=== PATIENT | male | born 1945 | race Caucasian/White ===

== ENCOUNTER 2017-03-09 09:05 | Inpatient (IN) | payer OTHER ==
--- NOTE | 2017-02-12 14:21 | PAT Medication Instructions ---
Service Date Feb 12, 2017. Current Home Medication List Metoprolol Tartrate (Lopressor) (Lopressor), 25 MG PO QAM Multivitamin (Multivitamin), 1 TAB PO QAM Rivaroxaban (Xarelto), 20 MG PO QAM Solifenacin (Vesicare), 10 MG PO QAM Tamsulosin HCl (Tamsulosin HCl), 1 CAP PO QPM Telmisartan (Telmisartan), 1 TAB PO QAM Medication Instructions For Your Scheduled Surgery - Check with surgeon/legal nurse consultant for instructions: Rivaroxaban (Xarelto), 20 MG PO QAM - Hold the following medications the morning of surgery: Telmisartan (Telmisartan), 1 TAB PO QAM Solifenacin (Vesicare), 10 MG PO QAM Multivitamin (Multivitamin), 1 TAB PO QAM - Take the following medications the morning of surgery with a sip of water: Metoprolol Tartrate (Lopressor) (Lopressor), 25 MG PO QAM - Take the following medications as scheduled the night before surgery: Tamsulosin HCl (Tamsulosin HCl), 1 CAP PO QPM If you have any questions please call us at [phone] (Fannie Villalpando PA-C) or [phone] or [phone]
[2017-02-12 15:07] VITALS: BMI 44.0
--- NOTE | 2017-02-12 15:11 | DIAGNOSTIC IMAGING REPORT ---
CHEST PREADMISSION(PA/LAT) CLINICAL HISTORY: Preoperative evaluation. COMPARISON STUDY: No previous studies for comparison. FINDINGS: Lung volumes are normal. There is no pneumothorax or pleural effusion. There is borderline cardiomegaly without evidence of pulmonary edema. Linear left basilar opacity is suggestive of atelectasis or scarring. There is no consolidation. A dual lead left subclavian pacemaker is in place. IMPRESSION: 1. No acute findings. 2. Borderline cardiomegaly. Electronically signed by: Jones Sharma M.D. 02/12/2017 3:10 PM Dictated Date/Time: 02/12/2017 3:08 PM
[2017-02-12 15:16] LABS: BASO % 0.3 %; BASO ABS # 0.02 K/uL (0-0.2); COMPLETE YES; EOS % 2.4 %; HEMATOCRIT 42.1 % (42-52); LYMPH % 18.3 %; MEAN CELL VOLUME 91.1 fL (80-100); MEAN CORPUSCULAR HGB CONC 35.2 g/dl (32-36); MEAN PLATELET VOLUME 11.3 fL (7.4-10.4); MONO % 9.4 %; NEUT % 69.6 %; PLATELET COUNT 112 K/uL (130-400); RED BLOOD COUNT 4.62 M/uL (4.7-6.1); URINE APPEARANCE CLEAR (CLEAR); URINE BILIRUBIN NEG (NEG); URINE COLOR DK YELLOW; URINE NITRITE NEG (NEG); URINE PH 6.5 (4.5-7.5); URINE SPECIFIC GRAVITY 1.019 (1.000-1.030); UROBILINOGEN NEG (NEG); WHITE BLOOD COUNT 6.57 K/uL (4.8-10.8); ZZUR CULT IF INDIC CLEAN CATCH NO
[2017-02-12 15:23] LABS: MANUAL MICROSCOPIC REQUIRED? NO; REVIEW REQ? NO
[2017-02-12 15:28] LABS: INR 1.3 (0.9-1.1); PARTIAL THROMBOPLASTIN RATIO 1.4; PROTHROMBIN TIME (PATIENT) 14.2 SECONDS (9.0-12.0)
[2017-02-12 15:37] LABS: BUN/CREATININE RATIO 13.2 (10-20); CALCIUM 8.7 mg/dl (8.5-10.1); CREATININE 0.88 mg/dl (0.60-1.40); POTASSIUM 4.2 mmol/L (3.5-5.1)
--- NOTE | 2017-03-06 08:49 | HISTORY & PHYSICAL EXAMINATION ---
DATE OF ADMISSION: 03/09/2017 CHIEF COMPLAINT: Bilateral knee pain, left greater than right. HISTORY OF PRESENT ILLNESS: Mr. Canales is a 71-year-old male with a 10-year history of pain in his knees. He rates his pain a 12/10. He states the left is worse than the right. He has been ambulating with a cane. The patient has had injections, bracing, and physical therapy without relief. He has failed conservative treatment and is scheduled for staged total knee replacement. PAST MEDICAL HISTORY: History of PE in 1997, sleep apnea, hypertension, bladder cancer. He denies heart disease or diabetes. PAST SURGICAL HISTORY: Left knee arthroscopy, hernia repair, cholecystectomy, and pacemaker. SOCIAL HISTORY: The patient denies alcohol or tobacco use. He lives in a single-story home. He is and retired. FAMILY HISTORY: Negative for DVT. MEDICATIONS: Metoprolol 25 mg daily, multivitamin, Xarelto 20 mg daily, tamsulosin 0.4 mg daily, Micardis 20 mg daily, VESIcare 10 mg daily, isosorbide 30 mg. ALLERGIES: MORPHINE AND ADHESIVE. REVIEW OF SYSTEMS: See HPI. Ten other systems reviewed, all negative. PHYSICAL EXAMINATION: VITAL SIGNS: Height 5 feet 8, weight 286 pounds. BMI is 44. GENERAL: This is a well-developed, well-nourished male who is alert and oriented x3. Mood and affect are appropriate. HEENT: Normocephalic, atraumatic. Mucous membranes are moist and intact. NECK: Supple without lymphadenopathy. HEART: Regular rate and rhythm without murmurs, rubs or gallops. LUNGS: Clear to auscultation without wheezes or rhonchi. ABDOMEN: Soft and nontender. Bowel sounds are equal and active. EXTREMITIES: No ecchymosis, redness or warmth. He is wearing MAFO brace on his right lower extremity. He has moderate venous stasis disease with pitting edema. He has a varus deformity. Range of motion is from 0-110 degrees with +1 laxity. He is neurovascularly intact with +5/5 strength. X-RAY EXAMINATION: AP and lateral views show joint space narrowing and osteophyte formation. IMPRESSION: Degenerative joint disease, left knee. PLAN: The patient will be admitted for a left total knee arthroplasty. We will plan on resuming Xarelto for DVT prophylaxis since he has a history of DVT. PCP is Dr. Laura. DEVI
[~2017-03-09] VITALS: Ht 172.7 cm; Wt 130.6 kg
[2017-03-09] VITALS (7 sets, daily range): BP systolic 124–189; BP diastolic 69–102; PULSE 59–65; TEMP 36.6–37.1; O2SAT 95–98; Ht 172.7 cm; Wt 130.6 kg
[2017-03-09] MEDS: TRANEXAMIC ACID INJ 1,000 MG in SODIUM CHLORIDE 0.9% 100ML 100 ML IV SCH ×2 (06:30→11:59)
[~2017-03-09 09:05] MED LIST: ACETAMINOPHEN 500 MG TAB PO SCH; BUPIVACAINE 0.5 % 5 MG/1 ML PF 10ML VIAL ONE; CEFAZOLIN 3000 MG/65 ML D5W 65 ML IV SCH; CeleBREX 200 MG CAP PO SCH; DEXAMETHASONE 4 MG TAB PO SCH; FAMOTIDINE 20 MG TAB PO SCH; FLM4 PO; GABAPENTIN 300 MG CAP PO SCH; LACTATED RINGER'S 1000ML 1,000 ML IV SCH; LACTATED RINGER'S 1000ML 500 ML IV ONE; LACTATED RINGER'S 1000ML IV SCH; METO25TA56 PO; METOCLOPRAMIDE HCL 10 MG TAB PO SCH; MULT-506 PO; OXYCODONE HCL 10 MG TABCR (OXYCONTIN) PO SCH; POLYMYXIN B SULFATE 100,000 UNITS in NSS 100ML IR SCH; RIVA1TAB4 PO; ROPIVACAINE 5MG/ML 30 ML 150 MG, BUPIVACAINE/EPINEPHR 0.5% MPF 30 ML, KETOROLAC TROMETH... INFIL SCH; SOLI10TA2 PO; VANCOMYCIN INJ 400 MG in NSS 100ML IR SCH; [UNRECOGNIZED DRUG - CODE] PO
[2017-03-09 10:43] LABS: HEMATOCRIT 39.8 % (42-52); MEAN CELL VOLUME 89.4 fL (80-100); MEAN CORPUSCULAR HEMOGLOBIN 32.1 pg (25-34); RED BLOOD COUNT 4.45 M/uL (4.7-6.1); WHITE BLOOD COUNT 5.05 K/uL (4.8-10.8)
[2017-03-09] MEDS ORDERED: MIDAZOLAM HCL 1 MG/ML 2ML VIAL ONE ×2 (10:47)
[2017-03-09] MEDS ORDERED: FENTANYL CITRATE INJ 50 MCG/1 ML 2 ML VIAL ONE ×3 (10:47→14:00)
[2017-03-09] MEDS ORDERED: PROPOFOL IV EMULSION 10 MG/ML 20 ML VIAL IV ONE (10:47)
--- NOTE | 2017-03-09 10:53 | History & Physical Bridge Note ---
H&P Re-Evaluation Bridge Note: I have examined the patient, reviewed the History & Physical and in the interval since the performance of the History & Physical I have noted the following changes of clinical significance: No changes noted
[2017-03-09 11:21] LABS: MEAN CORPUSCULAR HGB CONC 35.9 g/dl (32-36); MEAN PLATELET VOLUME 10.1 fL (7.4-10.4); PLATELET COUNT 87 K/uL (130-400)
[2017-03-09] MEDS ORDERED: POVIDONE-IODINE OP SOLN 30 ML BTL ONE (11:45)
[2017-03-09] MEDS ORDERED: ORTHO JOINT ANESTHETIC ONE (11:45)
[2017-03-09] MEDS ORDERED: BUPIVACAINE/EPINEPHRINE 0.25% 1:200,000 30 ML VIAL ONE (11:45)
[2017-03-09] MEDS ORDERED: LIDOCAINE HCL 2% 2 ML VIAL (20MG/ML) ONE (12:36)
[2017-03-09] MEDS ORDERED: DEXAMETHASONE SOD INJ 4 MG/ML VIAL ONE (12:36)
[2017-03-09] MEDS ORDERED: ONDANSETRON INJ 2 MG/ML 2 ML VIAL ONE (12:36)
[2017-03-09] MEDS ORDERED: ROCURONIUM BROMIDE 10 MG/ML 5 ML VIAL ONE ×2 (12:36→13:11)
[2017-03-09] MEDS: BACITRACIN 50000 UNIT VIAL ONE (12:55)
--- NOTE | 2017-03-09 13:22 | [facility] Post Operative Brief Note ---
Immediate Operative Summary Operative Date Mar 09, 2017. Pre-Operative Diagnosis Left Knee Degenerative Joint Disease Post-Operative Diagnosis Left Knee Degenerative Joint Disease MORBID OBESITY BMI 44 Procedure(s) Performed Left Total Knee Arthroplasty, Cemented Surgeon Dr. Elijah Tapia Salt Maker Surgeon(s) Emerson Kruger PA-C Estimated Blood Loss 5ml Findings DJD Specimens A: Left Knee Bone and Tissue Complication(s) None Disposition Recovery Room / PACU
[2017-03-09] MEDS ORDERED: ALUMINUM/MAGNESIUM/SIMETH (MAALOX MAX) 30 ML UDC PO PRN (13:30)
[2017-03-09] MEDS ORDERED: ONDANSETRON INJ 2 MG/ML 2 ML VIAL IV PRN ×2 (13:30)
[2017-03-09] MEDS ORDERED: OXYCODONE HCL IR 5 MG TAB (IMMEDIATE RELEASE) PO PRN (13:30)
[2017-03-09] MEDS ORDERED: BISACODYL 10 MG SUPP PR PRN (13:30)
[2017-03-09] MEDS ORDERED: ATROPINE SULFATE 0.1 MG/ML 5ML SYR IV PRN (13:30)
[2017-03-09] MEDS ORDERED: HYDROmorphone INJ 1 MG/ML SYR IV PRN (13:30)
[2017-03-09] MEDS ORDERED: MAGNESIUM HYDROXIDE SUSP 30 ML UDC PO PRN (13:30)
[2017-03-09] MEDS ORDERED: METOCLOPRAMIDE HCL INJ 5 MG/ML 2 ML VIAL IV PRN (13:30)
[2017-03-09] MEDS ORDERED: DiphenhydrAMINE HCL 50 MG/ML VIAL IV PRN (13:30)
[2017-03-09] MEDS ORDERED: EpHEDrine SULFATE INJ 50 MG/ML AMP IV PRN (13:30)
[2017-03-09] MEDS ORDERED: ZOLPIDEM TARTRATE 5 MG TAB PO PRN (13:30)
[2017-03-09] MEDS ORDERED: SOD PHOSPHATE/SOD BIPHOSPHATE ENEMA 132 ML BTL PR PRN (13:30)
[2017-03-09] MEDS ORDERED: NEOSTIGMINE METHYLSULFATE 5 MG/5 ML SYR ONE (13:41)
[2017-03-09] MEDS ORDERED: GLYCOPYRROLATE INJ 0.2 MG/ML VIAL ONE (13:41)
--- NOTE | 2017-03-09 14:41 | DIAGNOSTIC IMAGING REPORT ---
LEFT KNEE 1 OR 2 VIEWS ROUTINE CLINICAL HISTORY: Left knee degenerative arthritis. Arthroplasty. COMPARISON: None FINDINGS: Alignment of the total left knee arthroplasty is anatomic. There is no fracture or unexpected radiopaque foreign body. Drains are in place. IMPRESSION: Expected findings following total left knee arthroplasty. Electronically signed by: Jones Sharma M.D. 03/09/2017 2:39 PM Dictated Date/Time: 03/09/2017 2:39 PM
[2017-03-09] MEDS: FENTANYL CITRATE INJ 50 MCG/1 ML 2 ML VIAL IV PRN ×2 (14:57→15:02)
[2017-03-09] MEDS: KETOROLAC TROMETHAMINE 15 MG/ML VIAL IV. SCH ×2 (16:50→22:16)
[2017-03-09] MEDS: TRAMADOL HCL 50 MG TAB PO PRN ×2 (17:44→23:54)
--- NOTE | 2017-03-09 19:22 | OPERATIVE REPORT ---
DATE OF OPERATION: 03/09/2017 PREOPERATIVE DIAGNOSES: 1. Degenerative arthritis left knee. 2. Morbid obesity, body mass index 44. POSTOPERATIVE DIAGNOSES: Same. PROCEDURE: Left total knee replacement. SURGEON: Dr. Tapia. ETL ANALYST: EDIE Cooper. ANESTHESIA: General. TOURNIQUET TIME: 75 minutes at 350 mmHg. DRAINS: Hemovac x2. CULTURES: None. COMPLICATIONS: None. COMPONENTS USED: [employer] Knee System: Femur size 6, tibia size 6 x 10, patella size 38. NOTE: EDIE Cooper was present and assisted throughout due to the complicated nature of this case. He helped with preparation and set up, he first assisted throughout and personally closed the capsule, subcutaneous and skin layers and applied the postoperative dressing. DESCRIPTION OF PROCEDURE: Following satisfactory general, the patient was supine. General was required because of a low platelet count. A tourniquet was placed. The lower extremity was prepared with ChloraPrep and draped sterilely. Following a surgical time-out, the tourniquet was inflated because of the patient's obese body habitus and the use general and the history of low platelets. A midline incision was made with a trivector approach. The knee showed severe grade 4 changes throughout. The cruciate ligaments were excised. Using the IM alignment system with a 5 degree cut, the distal femur was sized and shaped for a size 6 posterior stabilized component. Attention was turned to the tibia. The tibia was resected with the extramedullary alignment guide. Soft tissue balancing was completed. The patella was freehand cut and a trial reduction showed good tensioning stability on the collateral ligaments, stable range of motion, and the patella tracked well. The trial components were removed. The capsule was prepared with the orthopedic cocktail and after irrigation, the components were cemented with Simplex G cement. A Betadine soak was performed. When the cement had hardened, the Betadine was irrigated. Two drains were placed. The arthrotomy was closed with 0 V-Loc and #1 Vicryl. The subcutaneous tissues with #1 Vicryl and 2-0 Vicryl and the skin with a running subcuticular stitch of 3-0 V-Loc. Dermabond and a dry dressing were applied. The tourniquet was deflated. The patient was returned to his bed in stable condition. I attest to the content of the Intraoperative Record and any orders documented therein. Any exceptio ns are noted below.
[2017-03-09] MEDS: D5W AND 1/2NSS + 20MEQ KCL 1,000 ML IV SCH (19:41)
--- NOTE | 2017-03-09 19:59 | Anesthesiology Progress Note ---
Anesthesia Post Op Note Date & Time Mar 09, 2017 at 19:57 Vital Signs Pain Intensity: 7.0 Vital Signs Past 12 Hours Date Time Temp Pulse Resp B/P Pulse Ox O2 Delivery O2 Flow Rate FiO2 03/09/17 18:32 36.7 64 18 137/77 96 Nasal Cannula 3.0 03/09/17 17:46 37.1 59 18 143/77 98 Nasal Cannula 3.0 03/09/17 16:47 36.7 60 18 155/102 96 Nasal Cannula 3.0 03/09/17 16:05 36.6 60 18 135/75 98 Nasal Cannula 3.0 03/09/17 15:35 95 Nasal Cannula 3.0 03/09/17 15:35 36.6 65 18 124/69 95 Nasal Cannula 3.0 03/09/17 15:30 64 18 128/65 98 Nasal Cannula 3 03/09/17 15:15 62 18 162/73 97 Nasal Cannula 3 03/09/17 15:00 60 16 147/90 97 Nasal Cannula 3 03/09/17 14:45 36.2 63 18 147/76 97 Nasal Cannula 3 03/09/17 14:35 61 18 136/72 97 Nasal Cannula 3 03/09/17 14:25 65 18 146/71 98 Mask 5 03/09/17 14:15 70 15 155/73 98 Mask 5 03/09/17 14:09 36.2 84 12 143/76 98 Mask 10 03/09/17 10:30 36.8 62 20 189/92 96 Room Air Notes Mental Status: alert / awake / arousable, participated in evaluation Pt Amnestic to Procedure: Yes Nausea / Vomiting: adequately controlled Pain: adequately controlled Airway Patency, RR, SpO2: stable & adequate BP & HR: stable & adequate Hydration State: stable & adequate Anesthetic Complications: no major complications apparent
[2017-03-09] MEDS: OXYCODONE HCL 10 MG TABCR (OXYCONTIN) PO SCH (20:31)
[2017-03-09] MEDS: CEFAZOLIN IV 2,000 MG in DEXTROSE 5% 50ML 50 ML IV SCH (20:33)
[2017-03-09] MEDS: ACETAMINOPHEN 500 MG TAB PO SCH (20:33)
[2017-03-09] MEDS: SENNA 8.6 MG TAB PO SCH (20:33)
[2017-03-09] MEDS: ASPIRIN 81 MG ECTAB PO SCH (20:33)
[2017-03-09] MEDS: TAMSULOSIN HCL 0.4 MG CAP PO SCH (20:34)
[2017-03-10] VITALS (7 sets, daily range): BP systolic 124–153; BP diastolic 71–83; PULSE 59–65; TEMP 36.3–36.8; O2SAT 94–96
[2017-03-10] MEDS: CEFAZOLIN IV 2,000 MG in DEXTROSE 5% 50ML 50 ML IV SCH (03:49)
[2017-03-10] MEDS: KETOROLAC TROMETHAMINE 15 MG/ML VIAL IV. SCH ×4 (03:50→21:35)
[2017-03-10] MEDS: ACETAMINOPHEN 500 MG TAB PO SCH ×3 (03:51→20:26)
[2017-03-10] MEDS: D5W AND 1/2NSS + 20MEQ KCL 1,000 ML IV SCH ×2 (05:35→12:15)
[2017-03-10 05:40] LABS: HEMATOCRIT 37.9 % (42-52); MEAN CELL VOLUME 90.9 fL (80-100); MEAN CORPUSCULAR HEMOGLOBIN 32.6 pg (25-34); MEAN CORPUSCULAR HGB CONC 35.9 g/dl (32-36); RED BLOOD COUNT 4.17 M/uL (4.7-6.1); WHITE BLOOD COUNT 11.75 K/uL (4.8-10.8)
[2017-03-10 05:49] LABS: PLATELET COUNT 95 K/uL (130-400)
[2017-03-10 05:57] LABS: BUN/CREATININE RATIO 18.3 (10-20); CALCIUM 8.1 mg/dl (8.5-10.1); CREATININE 0.89 mg/dl (0.60-1.40); POTASSIUM 4.5 mmol/L (3.5-5.1)
--- NOTE | 2017-03-10 08:05 | Orthopedic Progress Note ---
Orthopedic Progress Note Date of Service Mar 10, 2017. Subjective Post OP Day: 1 Reports: feeling well, Denies: SOB, calf pain, chest pain, light headedness, nausea / vomiting Objective calves soft nontender, N/V intact, dressing C/D/I, A&O x3, toes mobile, hemovac drainage (425/225cc per shift) Date Time Temp Pulse Resp B/P Pulse Ox O2 Delivery O2 Flow Rate FiO2 03/10/17 07:30 Room Air 03/10/17 07:10 96 Room Air 03/10/17 07:05 36.3 60 16 124/83 95 Room Air 03/10/17 03:51 36.6 65 18 153/71 95 CPAP 03/09/17 23:40 CPAP 03/09/17 23:13 36.6 60 16 130/75 97 Nasal Cannula 2.0 03/09/17 18:32 36.7 64 18 137/77 96 Nasal Cannula 3.0 03/09/17 17:46 37.1 59 18 143/77 98 Nasal Cannula 3.0 03/09/17 16:47 36.7 60 18 155/102 96 Nasal Cannula 3.0 03/09/17 16:05 36.6 60 18 135/75 98 Nasal Cannula 3.0 03/09/17 15:35 Nasal Cannula 3.0 03/09/17 15:35 95 Nasal Cannula 3.0 03/09/17 15:35 36.6 64 18 124/69 95 Nasal Cannula 3.0 03/09/17 15:35 36.6 65 18 124/69 95 Nasal Cannula 3.0 03/09/17 15:30 64 18 128/65 98 Nasal Cannula 3 03/09/17 15:15 62 18 162/73 97 Nasal Cannula 3 03/09/17 15:00 60 16 147/90 97 Nasal Cannula 3 03/09/17 14:45 36.2 63 18 147/76 97 Nasal Cannula 3 03/09/17 14:35 61 18 136/72 97 Nasal Cannula 3 03/09/17 14:25 65 18 146/71 98 Mask 5 03/09/17 14:15 70 15 155/73 98 Mask 5 03/09/17 14:09 36.2 84 12 143/76 98 Mask 10 03/09/17 10:30 36.8 62 20 189/92 96 Room Air Laboratory Results 24 Hours: Test 03/09/17 10:35 03/10/17 05:10 Hematocrit 39.8 % 37.9 % Hemoglobin 14.3 g/dL 13.6 g/dL Assessment & Plan Assessment: POD#1 sp left TKA Inhouse Planning Pain Management: Celebrex, Oxycontin, PO Tylenol, Oxy IR DVT Prophylaxis: TEDs, SCDs, Xarelto Discharge Planning Discharge Planning: home with home health ([facility])
--- NOTE | 2017-03-10 08:06 | Discharge Instructions ---
Discharge Instructions Date of Service Mar 10, 2017. Admission Reason for Admission: Left Knee Degenerative Arthritis Discharge Discharge Diagnosis / Problem: SP LEFT TKA Discharge Goals Goal(s): Decrease discomfort, Improve function, Increase independence Activity Recommendations Activity Limitations: per Instructions/Follow-up section . Instructions / Follow-Up Instructions / Follow-Up ACTIVITY RECOMMENDATIONS: SELF CARE INSTRUCTIONS AFTER TOTAL KNEE REPLACEMENT A. You may need to continue a physical therapy program after discharge from the hospital. There are several options available to you. Your doctor will assist you in selecting the best one for you. 1. An out-patient facility 2 to 3 times a week for therapy or home therapy. 2. Continue working on all exercises taught to you in the hospital. Your goals should be to increase bending of your knee to 90 degrees and beyond and to fully straighten your knee. B. You may progress at your own pace from walking with a walker or crutches to a cane; then to no assistive devices. C. Make walking a part of your daily routine. Be up as much as comfortable with rest periods throughout the day. Rest with leg elevation is very important. Use the ice wrap frequently for the first 3-4 weeks. D. There are no restrictions on activities. You may ride in a car, shop, participate in marketing sales representative and all social activities. E. Wear the long elastic stockings (STANTON hose) 20 hours a day for 2 weeks after surgery. They can be removed several times a day for laundering and for a bath. F. You may shower, no tub baths until cleared by your doctor. SPECIAL CARE INSTRUCTIONS: VERY IMPORTANT TO READ AND REVIEW A. There are a few signs you need to watch for after you are home. Call [facility] if you notice any of the followin. Increased severe knee pain. Some pain is expected especially when you exercise. 2. Increased swelling in your leg or knee; pain or swelling of the calf muscle in either lower leg. 3. Any fluid drainage from the incision. 4. Shortness of breath or chest pain. B. Please call [facility] at if you have any concerns or questions about your operation or recovery. The doctor or his nurse will return your call promptly. C. You must take antibiotics before dental work, bladder, bowel or other surgery. Your doctor will provide you with a permanent care to carry describing this precaution. IMPORTANT: * HIGH RISK PATIENTS MAY BE PRESCRIBED A STRONGER BLOOD THINNER. THIS WILL BE PROVIDED AT DISCHARGE. RESUME XARELTO * CALL IF INCREASED PAIN, REDNESS, DRAINAGE OR FEVER GREATER THAT 101. * WEAR STANTON HOSE 20 HOURS PER DAY FOR 2 WEEKS. DERMABOND Prineo- This is a mesh tape dressing that is covered with glue. It should remain in place until the incision is properly healed, usually 10-14 days. This dressing is designed to naturally slough off. You may trim the excess mesh tape as it peels off. Incision may be briefly wet in a shower. Dry immediately by blotting with a clean, dry towel. Do not bath or swim until instructed by your doctor. Do not scratch, rub, or pick at the dressing. Do not apply any topical ointments or lotions until dressing is completely removed and/or instructed by your doctor. There may be a small piece of suture material at one end of your incision. Do not pull or trim this. If it is bothersome or catching on clothing, you may cover it with a band-aid. FOLLOW UP VISIT: If appointment is not already scheduled: Please call [facility] to make a follow-up appointment for 2 weeks after your surgery at . Current Hospital Diet Patient's current hospital diet: Regular Diet Discharge Diet Recommended Diet: Regular Diet Procedures Procedures Performed: Left Total Knee Arthroplasty, Cemented Pending Studies Studies pending at discharge: no Medical Emergencies . Who to Call and When: Medical Emergencies: If at any time you feel your situation is an emergency, please call 911 immediately. . Non-Emergent Contact Non-Emergency issues call your: Surgeon . "Provider Documentation" section prepared by Arlene Palafox. VTE Core Measure Inpt VTE Proph given/why not?: Other Anticoagulation, T.E.D. Stockings, SCD's [place] Drug Monitoring Program Search Results: patient reviewed within database, no issues identified
[2017-03-10] MEDS: ASPIRIN 81 MG ECTAB PO SCH ×2 (08:32→20:27)
[2017-03-10] MEDS: PANTOprazole SOD 40 MG TAB PO SCH (08:33)
[2017-03-10] MEDS: RIVAROXABAN 10 MG TAB PO SCH (08:34)
[2017-03-10] MEDS: TELMISARTAN 20 MG TAB PO SCH (08:34)
[2017-03-10] MEDS: MULTIVITAMIN TAB PO SCH (08:34)
[2017-03-10] MEDS: METOPROLOL TARTRATE 25 MG TAB PO SCH (08:34)
[2017-03-10] MEDS: TRAMADOL HCL 50 MG TAB PO PRN ×2 (08:43→13:45)
[2017-03-10] MEDS: OXYCODONE HCL 10 MG TABCR (OXYCONTIN) PO SCH ×2 (09:00→20:31)
[2017-03-10] MEDS: TAMSULOSIN HCL 0.4 MG CAP PO SCH (21:33)
[2017-03-10] MEDS: SENNA 8.6 MG TAB PO SCH (21:34)
[2017-03-11] MEDS: KETOROLAC TROMETHAMINE 15 MG/ML VIAL IV. SCH ×2 (04:11→10:35)
[2017-03-11] MEDS: ACETAMINOPHEN 500 MG TAB PO SCH (05:54)
[2017-03-11 07:14] VITALS: BP 158/81; PULSE 60; TEMP 36.5; O2SAT 98
[2017-03-11] MEDS: TRAMADOL HCL 50 MG TAB PO PRN (07:46)
[2017-03-11] MEDS: OXYCODONE HCL 10 MG TABCR (OXYCONTIN) PO SCH (07:46)
[2017-03-11] MEDS: MULTIVITAMIN TAB PO SCH (07:47)
[2017-03-11] MEDS: TELMISARTAN 20 MG TAB PO SCH (07:47)
[2017-03-11] MEDS: RIVAROXABAN 10 MG TAB PO SCH (07:48)
[2017-03-11] MEDS: PANTOprazole SOD 40 MG TAB PO SCH (07:49)
[2017-03-11] MEDS: METOPROLOL TARTRATE 25 MG TAB PO SCH (07:49)
--- NOTE | 2017-03-11 08:17 | Orthopedic Progress Note ---
Orthopedic Progress Note Date of Service Mar 11, 2017. Subjective Post OP Day: 2 Reports: feeling well, Denies: SOB, calf pain, chest pain, light headedness, nausea / vomiting Objective calves soft nontender, N/V intact, dressing C/D/I, A&O x3, toes mobile Date Time Temp Pulse Resp B/P Pulse Ox O2 Delivery O2 Flow Rate FiO2 03/11/17 07:14 36.5 60 20 158/81 98 Room Air 03/10/17 23:15 CPAP 03/10/17 23:00 36.5 62 18 148/80 95 Room Air 03/10/17 16:30 94 Room Air 03/10/17 15:29 36.8 60 16 151/76 94 Room Air 03/10/17 12:32 36.8 59 16 133/74 96 Room Air Assessment & Plan Assessment: POD#2 sp left TKA Inhouse Planning Pain Management: Celebrex, Oxycontin, PO Tylenol, Oxy IR DVT Prophylaxis: TEDs, SCDs, Xarelto Discharge Planning Discharge Planning: home with home health ([facility])
[2017-03-11] MEDS ORDERED: ACET-1138 PO (08:20)
[2017-03-11] MEDS ORDERED: SNK PO (08:20)
[2017-03-11] MEDS ORDERED: ONDA8TAB6 PO (08:20)
[2017-03-11] MEDS ORDERED: ASPEC81 PO (08:20)
[2017-03-11] MEDS ORDERED: MORP-157 PO (08:20)
[2017-03-11] MEDS ORDERED: RXC5 PO (08:20)
[2017-03-11] MEDS ORDERED: CLB200 PO (08:20)
[2017-03-11 09:38] VITALS: BP 158/81; PULSE 60; TEMP 36.5; O2SAT 98
[2017-03-11] MEDS ORDERED: CeleBREX 200 MG CAP PO SCH (21:00)
--- NOTE | 2017-03-16 16:02 | DISCHARGE SUMMARY ---
DISCHARGE DIAGNOSIS: Degenerative joint disease, left knee. SECONDARY DIAGNOSES: History of pulmonary embolus in 1997, history of sleep apnea, hypertension, bladder carcinoma. CONSULTS: None. COMPLICATIONS: None. PROCEDURE: Left total knee arthroplasty performed by Dr. Elijah Tapia on 03/09/2017. BRIEF HISTORY: As dictated in the history and physical. HOSPITAL SUMMARY: The patient was admitted on the above date and had the above-noted surgery performed which he tolerated well. On the first postoperative day, he was feeling well and had no complaints. Calves were soft, nontender, neurovascularly intact. Dressings clean, dry and intact. Toes were mobile. Vital signs were stable. He was afebrile. Hemoglobin was 13.6 and he was started on physical therapy protocol and continued on DVT prophylaxis and pain management. By his second postoperative day, he was feeling well and had no complaints. Vital signs were stable. He was progressing well with physical therapy and it was felt he could be discharged to home. For further review, please see chart. LAB AND X-RAY DATA: As per chart. DISCHARGE INSTRUCTIONS: The patient was discharged to home in satisfactory condition on 03/11/2017. DIET: Regular. ACTIVITY: Follow TKA instruction sheets and special care instructions as noted and follow up with Dr. Tapia in 2 weeks. The patient to call for appointment if one has not been made for you. DISCHARGE MEDICATIONS: Acetaminophen 1000 mg p.o. q. 8 hours for 30 days, Celebrex 200 mg p.o. b.i.d., MS Contin 15 mg p.o. q. 12 hours, Zofran 8 mg p.o. q. 8 hours p.r.n. nausea, oxycodone 5-10 mg p.o. q. 4 hours p.r.n., senna 17.2 mg p.o. at bedtime. Continue taking metoprolol 25 mg p.o. q.a.m., multivitamin 1 tab p.o. q.a.m., Xarelto 20 mg p.o. q.a.m., VESIcare 10 mg p.o. q.a.m., tamsulosin 0.4 mg p.o. q.p.m. and telmisartan 20 mg 1 tab p.o. q.a.m.
== END 2017-03-11 14:33 | disposition home health service (06) | DRG 470 ==
LOC: ENRESERVDT → ENRESERVTM → C.ACU 09:05 → C.3E 09:09
PROVIDERS: ADMIT Orthopaedic Surgery; ATTEND Orthopaedic Surgery
PROC: 0SRD0J9 Replacement of Left Knee Joint with Synthetic Substitute, Cemented, Open Approach (ICD-10-PCS; principal; 2017-03-09 11:45)
DX: M17.12 Unilateral primary osteoarthritis, left knee (principal); Z68.41 Body mass index [BMI] 40.0-44.9, adult; M21.162 Varus deformity, not elsewhere classified, left knee; I10 Essential (primary) hypertension; N40.0 Benign prostatic hyperplasia without lower urinary tract symptoms; D69.6 Thrombocytopenia, unspecified; I87.8 Other specified disorders of veins; G47.33 Obstructive sleep apnea (adult) (pediatric); E66.01 Morbid (severe) obesity due to excess calories; Z99.89 Dependence on other enabling machines and devices; Z95.0 Presence of cardiac pacemaker; Z87.891 Personal history of nicotine dependence; Z79.01 Long term (current) use of anticoagulants; Z79.84 Long term (current) use of oral hypoglycemic drugs; Z79.899 Other long term (current) drug therapy

== ENCOUNTER 2017-03-22 15:47 | Emergency (ER) | payer OTHER ==
[~2017-03-22] VITALS: Ht 172.7 cm; Wt 130.0 kg
[~2017-03-22 15:47] MED LIST changes: +ACET-1138 PO; -ACETAMINOPHEN 500 MG TAB PO SCH; -BUPIVACAINE 0.5 % 5 MG/1 ML PF 10ML VIAL ONE; -CEFAZOLIN 3000 MG/65 ML D5W 65 ML IV SCH; +CLB200 PO; -CeleBREX 200 MG CAP PO SCH; -DEXAMETHASONE 4 MG TAB PO SCH; -FAMOTIDINE 20 MG TAB PO SCH; -GABAPENTIN 300 MG CAP PO SCH; -LACTATED RINGER'S 1000ML 1,000 ML IV SCH; -LACTATED RINGER'S 1000ML 500 ML IV ONE; -LACTATED RINGER'S 1000ML IV SCH; -METOCLOPRAMIDE HCL 10 MG TAB PO SCH; +MORP-157 PO; +ONDA8TAB6 PO; -OXYCODONE HCL 10 MG TABCR (OXYCONTIN) PO SCH; -POLYMYXIN B SULFATE 100,000 UNITS in NSS 100ML IR SCH; -ROPIVACAINE 5MG/ML 30 ML 150 MG, BUPIVACAINE/EPINEPHR 0.5% MPF 30 ML, KETOROLAC TROMETH... INFIL SCH; +RXC5 PO; +SNK PO; -VANCOMYCIN INJ 400 MG in NSS 100ML IR SCH
[2017-03-22 15:55] VITALS: Ht 172.7 cm; Wt 130.0 kg
--- NOTE | 2017-03-22 16:32 | EMERGENCY ROOM VISIT NOTE ---
History Report prepared by Ridge: Micheal Keller Under the Supervision of: Dr. Anthony Haji M.D. First contact with patient: 16:17 Chief Complaint: LEG PAIN,LEG INJURY Stated Complaint: LT LEG RED/WARM, S/P SURGERY History of Present Illness The patient is a 71 year old male who presents to the Emergency Room with complaints of worsening erythema of the left lower leg for the past several days. The patient had a home health nurse [place] red areas yesterday. The redness has extended past the circles. The area is warm to touch. He also describes swelling and pain rated 4/10 in severity. He denies fevers, flu-like symptoms, chest pain, or new shortness of breath. The patient had his left knee replaced by Dr. Tapia 13 days ago. He had a drainage tube removed 11 days ago. He followed up several days ago with Dr. Tapia's PA. The patient is not currently on antibiotics. He is on Xarelto 20 mg for a history of blood clots. Source of History: patient, family Onset: several days ago Position: leg (left) Quality: other (erythema) Timing: worsening Associated Symptoms: No SOB, No chest pain, No fevers Review of Systems See HPI for pertinent positives & negatives. A total of 10 systems reviewed and were otherwise negative. Past Medical & Surgical Surgical Problems: (1) Post-operative state Old medical records were reviewed. Nurse's notes were reviewed and I agree with. Family History No pertinent family history Social History Smoking Status: Never Smoker Housing Status: lives with family Current/Historical Medications Scheduled Celecoxib (CeleBREX), 200 MG PO BID Docusate Sodium (Stool Softener), 200 MG PO QAM Metoprolol Tartrate (Lopressor) (Lopressor), 25 MG PO QAM Multivitamin (Multivitamin), 1 TAB PO QAM Polyethylene Glycol 3350 (Miralax), 17 GM PO DAILY Rivaroxaban (Xarelto), 20 MG PO QAM Solifenacin (Vesicare), 10 MG PO QAM Tamsulosin HCl (Tamsulosin HCl), 1 CAP PO QPM Telmisartan (Telmisartan), 1 TAB PO QAM Scheduled PRN Acetaminophen (Tylenol), 1,000 MG PO Q8 PRN for Pain Oxycodone Ir (Roxicodone Ir), 5-10 MG PO Q4H PRN for Severe Pain Allergies Coded Allergies: Adhesives (Verified Allergy, Unknown, SKIN REDNESS, 03/22/17) Latex1 -Allergic Contact Dermititis (Verified Allergy, Unknown, ITCHY, ) Morphine (Verified Adverse Reaction, Severe, NAUSEA/VOMITTING, 03/22/17) Physical Exam Vital Signs Date Time Temp Pulse Resp B/P Pulse Ox O2 Delivery O2 Flow Rate FiO2 03/22/17 20:45 36.5 60 18 135/66 96 03/22/17 20:30 60 18 135/66 96 Room Air 03/22/17 18:07 63 18 142/73 96 Room Air 03/22/17 15:55 36.5 61 20 177/93 95 Room Air Physical Exam General: Non ill appearing older male in no acute distress, breathing comfortably on room air. Normal speech HEENT: Normal cephalic atraumatic. Pupils are equal round and reactive to light. Extraocular movements are intact. Oropharynx is pink with moist mucous membranes. No swelling of the mouth lips or tongue. Neck: Supple with a midline trachea. No meningeal signs or stiffness, no JVD or bruits. No Stridor. Chest: Clear to auscultation bilaterally. No wheezes or rhonchi. No increased work of breathing. Heart: regular rate and rhythm. Abdomen: Soft nontender, nondistended without rebound guarding or rigidity. Extremities: Left knee has intact sutures, no drainage or dehiscence. There is some redness and warmth to the [place] anteriorly and medially, patient is able to move the knee. Distal pulses 2+. Spine/Back. Non tender to palpation. No CVA tenderness Skin: Good turgor without rashes. Neurologic exam: Cranial nerves two through 12 are intact. Motor and sensation are intact and symmetrical throughout. Medical Decision & Procedures ER Provider Diagnostic Interpretation: Radiology results as stated below per my review and radiologist interpretation: LEFT KNEE 2 VIEWS HISTORY: left knee pain postop COMPARISON: None. FINDINGS: There is no fracture or dislocation. There is a left total knee arthroplasty. The hardware appears intact. Small knee effusion. Diffuse soft tissue swelling within the knee. Tiny linear density adjacent to the lateral aspect of the distal left femur may represent a tiny bony fragment. IMPRESSION: 1. Small knee effusion and diffuse soft tissue swelling. 2. A 3 mm linear density adjacent to the lateral aspect of the distal femur remains unchanged and likely represents a tiny bony fragment due to postoperative change rather than a foreign body. Electronically signed by: Javon Bryant M.D. 03/22/2017 4:49 PM Dictated Date/Time: 03/22/2017 4:46 PM LEFT LOWER EXTREMITY VENOUS DOPPLER HISTORY: Left leg swelling. eval for DVT, hematoma COMPARISON STUDY: None. FINDINGS: There is normal compressibility, flow, and augmentation within the left lower extremity deep venous system. Small amount of thrombus seen within the superficial varicosities within the anterior lower leg. IMPRESSION: No DVT within the left lower extremity. Small amount of thrombus seen within the superficial varicosities within the anterior lower leg. Electronically signed by: Javon Bryant M.D. 03/22/2017 5:52 PM Dictated Date/Time: 03/22/2017 5:51 PM Laboratory Results 03/22/17 17:00 Red Blood Count 3.83, Mean Corpuscular Volume 93.0, Mean Corpuscular Hemoglobin 31.9, Mean Corpuscular Hemoglobin Concent 34.3, Mean Platelet Volume 9.5, Neutrophils (%) (Auto) 61.8, Lymphocytes (%) (Auto) 23.5, Monocytes (%) (Auto) 10.7, Eosinophils (%) (Auto) 3.3, Basophils (%) (Auto) 0.5, Neutrophils # (Auto ) 3.76, Lymphocytes # (Auto) 1.43, Monocytes # (Auto) 0.65, Eosinophils # (Auto ) 0.20, Basophils # (Auto) 0.03 03/22/17 17:00 Test 03/22/17 17:00 White Blood Count 6.08 K/uL (4.8-10.8) Red Blood Count 3.83 M/uL (4.7-6.1) Hemoglobin 12.2 g/dL (14.0-18.0) Hematocrit 35.6 % (42-52) Mean Corpuscular Volume 93.0 fL (80-100) Mean Corpuscular Hemoglobin 31.9 pg (25-34) Mean Corpuscular Hemoglobin Concent 34.3 g/dl (32-36) Platelet Count 131 K/uL (130-400) Mean Platelet Volume 9.5 fL (7.4-10.4) Neutrophils (%) (Auto) 61.8 % Lymphocytes (%) (Auto) 23.5 % Monocytes (%) (Auto) 10.7 % Eosinophils (%) (Auto) 3.3 % Basophils (%) (Auto) 0.5 % Neutrophils # (Auto) 3.76 K/uL (1.4-6.5) Lymphocytes # (Auto) 1.43 K/uL (1.2-3.4) Monocytes # (Auto) 0.65 K/uL (0.11-0.59) Eosinophils # (Auto) 0.20 K/uL (0-0.5) Basophils # (Auto) 0.03 K/uL (0-0.2) RDW Standard Deviation 48.2 fL (36.4-46.3) RDW Coefficient of Variation 14.2 % (11.5-14.5) Immature Granulocyte % (Auto) 0.2 % Immature Granulocyte # (Auto) 0.01 K/uL (0.00-0.02) Erythrocyte Sedimentation Rate 40 mm/hr (0-14) Anion Gap 3.0 mmol/L (3-11) Est Creatinine Clear Calc Drug Dose 81.0 ml/min Estimated GFR () 77.9 Estimated GFR (Non- 67.2 BUN/Creatinine Ratio 22.7 (10-20) Calcium Level 8.4 mg/dl (8.5-10.1) C-Reactive Protein 1.43 mg/dl (0-0.29) Laboratory studies as stated above per my review. ED Course 1617: Past medical records reviewed. The patient was evaluated in room C8, and a complete history and physical examination were performed. 1919: Discussed the case with Dr. Mcgee, Orthopedic Surgeon. The patient will be evaluated. 1932: The patient was resting comfortably. 2019: Dr. Mcgee evaluated the patient. He said that the patient can go home and follow up with Dr. Tapia this week. 2034: Reassessed the patient. Discussed the discharge instructions with him. He verbalized understanding and agreement of the treatment plan. The patient is ready for discharge. Medical Decision Differential diagnosis includes DVT, infection, post-op swelling, electrolyte or metabolic abnormality. This patient comes in as described above he's postop day #13 with a knee replacement. There is concern for possible infection. He has no fever or systemic complaints. On exam, he does have some mild redness and warmth in places. He is on Xarelto so makes it really difficult to tell if he is infected or not. He is able to move the knee freely and does not a large effusion. X-ray of the knee was unremarkable. Ultrasound shows no evidence of DVT, he does have some superficial varicose veins that have some thrombosis in them. He has no elevation of his white count. Sedimentation rate and CRP are marginally elevated. I did consult Dr. Mcgee and he came in and saw the patient and does not feel that the patient is likely infected at this point. He has taken some pictures of the knee and they will follow-up with him and Dr. Tapia's clinic in a couple days. He does not wish to start antibiotics at this point. He thinks that it is likely related to the postop swelling and bruising related to Xarelto. The patient and his family were in agreement with the plan and he will be discharged to home with close follow-up arranged with Dr. Tapia. He was encouraged to return if: increasing pain, fever or chills, worsening of symptoms, any new problems or concerns. Consults Time Called: 1909 Consulting Physician: Dr. Mcgee, Orthopedic Surgeon. Returned Call: 1919 1919: Discussed the case with Dr. Mcgee, Orthopedic Surgeon. The patient will be evaluated. Impression Primary Impression: Leg pain, left Additional Impression: Left leg swelling Scribe Attestation The scribe's documentation has been prepared under my direction and personally reviewed by me in its entirety. I confirm that the note above accurately reflects all work, treatment, procedures, and medical decision making performed by me. Departure Information Dispostion Home / Self-Care Referrals No Doctor, Assigned (PCP) Forms HOME CARE DOCUMENTATION FORM, IMPORTANT VISIT INFORMATION Patient Instructions [facility] Additional Instructions Rest. Return if: Increasing pain, worsening of symptoms, fever or chills, increasing redness or warmth, any new problems or concerns Follow up with your doctor in 1-2 days for recheck Problem Qualifiers
[2017-03-22] MEDS ORDERED: POLY335019 PO (16:40)
[2017-03-22] MEDS ORDERED: OXYC1TAB3 PO (16:40)
[2017-03-22] MEDS ORDERED: DOCU100T7 PO (16:40)
[2017-03-22] MEDS ORDERED: ACET-1256 PO (16:40)
[2017-03-22] MEDS ORDERED: CLB/200 PO (16:40)
--- NOTE | 2017-03-22 16:51 | DIAGNOSTIC IMAGING REPORT ---
LEFT KNEE 2 VIEWS HISTORY: left knee pain postop COMPARISON: None. FINDINGS: There is no fracture or dislocation. There is a left total knee arthroplasty. The hardware appears intact. Small knee effusion. Diffuse soft tissue swelling within the knee. Tiny linear density adjacent to the lateral aspect of the distal left femur may represent a tiny bony fragment. IMPRESSION: 1. Small knee effusion and diffuse soft tissue swelling. 2. A 3 mm linear density adjacent to the lateral aspect of the distal femur remains unchanged and likely represents a tiny bony fragment due to postoperative change rather than a foreign body. Electronically signed by: Javon Bryant M.D. 03/22/2017 4:49 PM Dictated Date/Time: 03/22/2017 4:46 PM
[2017-03-22 17:26] LABS: BASO % 0.5 %; BASO ABS # 0.03 K/uL (0-0.2); COMPLETE YES; EOS % 3.3 %; HEMATOCRIT 35.6 % (42-52); IG% 0.2 %; LYMPH % 23.5 %; LYMPH ABS # 1.43 K/uL (1.2-3.4); MEAN CORPUSCULAR HEMOGLOBIN 31.9 pg (25-34); MEAN CORPUSCULAR HGB CONC 34.3 g/dl (32-36); MEAN PLATELET VOLUME 9.5 fL (7.4-10.4); MONO % 10.7 %; NEUT % 61.8 %; PLATELET COUNT 131 K/uL (130-400); RED BLOOD COUNT 3.83 M/uL (4.7-6.1); WHITE BLOOD COUNT 6.08 K/uL (4.8-10.8)
[2017-03-22 17:43] LABS: BUN/CREATININE RATIO 22.7 (10-20); C-REACTIVE PROTEIN 1.43 mg/dl (0-0.29); CALCIUM 8.4 mg/dl (8.5-10.1); CREATININE 1.1 mg/dl (0.60-1.40); POTASSIUM 4.3 mmol/L (3.5-5.1)
--- NOTE | 2017-03-22 17:54 | DIAGNOSTIC IMAGING REPORT ---
LEFT LOWER EXTREMITY VENOUS DOPPLER HISTORY: Left leg swelling. eval for DVT, hematoma COMPARISON STUDY: None. FINDINGS: There is normal compressibility, flow, and augmentation within the left lower extremity deep venous system. Small amount of thrombus seen within the superficial varicosities within the anterior lower leg. IMPRESSION: No DVT within the left lower extremity. Small amount of thrombus seen within the superficial varicosities within the anterior lower leg. Electronically signed by: Javon Bryant M.D. 03/22/2017 5:52 PM Dictated Date/Time: 03/22/2017 5:51 PM
[2017-03-22 20:45] VITALS: BP 135/66; PULSE 60; TEMP 36.5; O2SAT 96
--- NOTE | 2017-03-22 21:44 | ORTHOPEDIC CONSULTATION ---
DATE OF CONSULTATION: 03/22/2017 HISTORY OF PRESENT ILLNESS: A 71-year-old male status post knee replacement on 03/09/[address] Tapia. He has had some swelling in his left knee and calf area. He had some bruising and some redness and concern for the home nurses was he may be getting an infection. He has no pain of significance. He was seen in the Emergency Room and did have a history of blood clots and ANDRA, so he did have an ultrasound which demonstrated superficial clotting of some of the veins, but no DVT. The patient presently is on Xarelto. PAST MEDICAL HISTORY: Positive for hypertension; cholecystectomy; PE, origin unknown; and some urinary problems. ALLERGIES: MORPHINE, LATEX AND TAPE. SOCIAL HISTORY: He is . Does not use tobacco or alcohol products. PHYSICAL EXAMINATION: GENERAL: Demonstrates an obese man. EXTREMITIES: His left knee, he has pain-free range of motion. Has a small effusion only. His incision is healed. There is no drainage. He does have some distinct redness around the drain holes mid pretibial area and on the medial side of his knee and sort of around area on the medial side of his knee. There is no streaking up the leg. He did not have any particular calf tenderness. His straight leg raise is intact and no extensor lag with intact extensor mechanism. His white count was within normal limits. Sed rate moderately elevated, expected post-total knee replacement. ASSESSMENT: Noninfectious erythema from anticoagulants. He has superficial deep vein thrombosis. PLAN: Continue Xarelto. Continue PT. Reassess skin later this week. The patient has an appointment with Dr. Tapia's PA on Thursday. If he starts running a fever or has pain or this redness worsens at all, will require reevaluation. At the present time, recommendations are not to place on antibiotics.
== END 2017-03-22 20:49 | disposition home or self-care (01) ==
LOC: C.EDB 15:48 → C.EDC 20:49
DX: L27.0 Generalized skin eruption due to drugs and medicaments taken internally (principal); I82.812 Embolism and thrombosis of superficial veins of left lower extremity; T45.515A Adverse effect of anticoagulants, initial encounter; I83.892 Varicose veins of left lower extremity with other complications; I10 Essential (primary) hypertension; Z86.711 Personal history of pulmonary embolism; Z86.79 Personal history of other diseases of the circulatory system; Z96.652 Presence of left artificial knee joint; Z90.49 Acquired absence of other specified parts of digestive tract; Z98.890 Other specified postprocedural states; Z79.01 Long term (current) use of anticoagulants; Z79.899 Other long term (current) drug therapy